=== PATIENT | female | born 1995 | race Caucasian/White ===

== ENCOUNTER 2018-05-20 08:59 | Emergency (ER) | payer BC, SELFPAY ==
[2018-05-20 09:02] VITALS: BP 112/82; PULSE 129; RESP 16; TEMP 37.3; O2SAT 98
--- NOTE | 2018-05-20 09:06 | W.ED.GENAD ---
Discharge Plan Disposition Patient Disposition: HOME Condition: Good Discharge Details Chief Complaint: Sorethroat Clinical Impression: URI (upper respiratory infection) Primary Care Provider: Sissy,Local ED Provider: Facundo Harris Home Meds and New Rx's Prescriptions: New loratadine 10 mg capsule 10 mg PO DAILY Qty: 14 RF: 0 No Action hydroxychloroquine [Plaquenil] 200 mg tablet 200 mg PO DAILY RF: 0 multivitamin,yn-yvth-otmqmigb [Complete Multivitamin] tablet 1 tab PO DAILY RF: 0 medroxyprogesterone [Depo-Provera] 150 mg/mL suspension 150 mg IM [id number] Qty: 1 RF: 2 Discharge Instructions Instructions: Upper Respiratory Infection (ED) Additional Instructions: Please take the medication as directed. Please drink 10-12 cups of water per day. Please take Tylenol and Motrin as needed for pain. You can take 1000 mg of Tylenol and 800 mg of ibuprofen every 6 hours. If you notice any worsening of your symptoms, or any new symptoms such as vomiting, diarrhea, fever, chills, shortness of breath, chest pain, numbness, weakness, or fainting , please return immediately to the emergency department for reevaluation. Please follow up with your primary care provider as soon as possible for reassessment and reevaluation. As always, it was a pleasure participating in your medical care today. Stand Alone Forms: Work Release Medical Decision Making This is a 23-year-old female with a past medical history of rheumatoid arthritis for which she takes Plaquenil, who presents today for mild sore throat, facial congestion, and feelings of malaise. No concerning red flags for meningitis, patient does demonstrate a mildly elevated heart rate, she is afebrile here. No signs of profound dehydration. No complaint of chest pain or shortness of breath. No clinical evidence of PE. Patient does demonstrate notable facial congestion, mild erythema in the posterior oropharynx. We will test for strep as well as influenza. Clinically the patient feels well though. 9:47 AM Patient has been drinking well here, she feels well and would like to go home. Strep and influenza have both returned negative. Feel the patient's symptoms are most likely from a viral upper respiratory infection, will recommend supportive therapy of fluids, Tylenol Motrin as needed for sore throat, and she has been given a work note. Because of her Plaquenil, I did discuss with her red flags which to return the importance of a low threshold for return as well as the importance of close follow-up. Vital signs have normalized and are reassuring. I have extensively reviewed the treatment plan and discharge instructions with the patient. I have addressed all patient concerns at this time. The patient was made aware of what symptoms to monitor for that would warrant a return to the emergency department. Discussed the plan with the patient, they demonstrate verbal understanding and agreement with our assessment and plan at this time. HPI General Date/Time Provider Initiated Documentation: 05/20/18 09:05. HPI Narrative: This is a 23-year-old female with past medical history of rheumatoid arthritis for which she takes Plaquenil, who presents today for evaluation of sore throat and frontal congestion. Symptoms have been present for the last 2 days. She denies any fever but does admit to generalized chills, aches, and feeling poorly. The patient denies any change in her medications. 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 She does admit to very mild headache, mild aches in her neck and joints. The patient denies any headache red flags of worst headache of life, thunderclap headache, severe neck pain, fever, concerning family history of polycystic kidney disease, Marfan syndrome, Umang-Danlos syndrome, abdominal aortic aneurysm, aortic dissection, or intracranial aneurysm. She denies any other modifying factors. She denies any other complaints at this time. She denies any recent surgical history, IV or illicit drug use, or pertinent family history. Related Data Home Medications Medication Instructions Recorded Confirmed hydroxychloroquine 200 mg tablet 200 mg PO DAILY tab 01/06/18 05/20/18 multivitamin,ey-lpkc-ydrlcspd 1 tab PO DAILY 01/06/18 05/20/18 tablet medroxyprogesterone 150 mg/mL 150 mg IM [id number] #1 ml 03/31/18 05/20/18 intramuscular suspension loratadine 10 mg PO DAILY #14 cap 05/20/18 Previous Rx's Medication Instructions Recorded medroxyprogesterone 150 mg/mL 150 mg IM [id number] #1 ml 03/31/18 intramuscular suspension loratadine 10 mg PO DAILY #14 cap 05/20/18 Allergies Allergy/AdvReac Type Severity Reaction Status Date / Time No Known Allergies Allergy Verified 05/20/18 09:14 General Stated Complaint: Sorethroat FELICITA: 4 Review of Systems Review of Systems All systems reviewed & are unremarkable except as noted in HPI and below PFSH Social History Smoking/Tobacco Use Status: Never Female Reproductive History Menstrual control method: progesterone injection (medroxyprogesterone 150 mg; [id number] EXP 04/2020; Given left gluteal) History History 0 Para Hx # Term Pregnancies Multiple births Hx # Pregnancies Ectopic pregnancies AB induced Hx Number of Living Children AB spontaneous Exam Narrative Exam Narrative: 1.Const: Well-nourished, Well-developed, appearing stated age 2.Eyes: PERRL, no conjunctival injection, and symmetrical lids. 3.ENT: Atraumatic external nose and ears. Moist MM. Neck: Symmetric, trachea midline, No thyromegaly. Patient demonstrates good movement of cervical neck. There is no nuchal rigidity, no nuchal tenderness. Patient is able to flex the neck without any difficulty or significant pain. Negative Kernig's and Brudzinski sign. Minimal erythema in the posterior oropharynx. No evidence of significant tonsillar exudates. Tympanic membranes are garcia and pearly, no signs of otitis media or externa. No significant anterior cervical lymphadenopathy. 4.CVS: +S1/S2, No murmurs or gallops. Peripheral pulses 2+ and equal in all extremities. Brisk capillary refill in all extremities. 5.RESP: Unlabored respiratory effort. Clear to auscultation bilaterally. No wheezes rales or rhonchi 6.GI: Soft, Nontender/Nondistended, No hepatosplenomegaly. No guarding or rebound. 7.MSK: Normocephalic/Atraumatic, Extremities w/o deformity or ttp No cyanosis or clubbing, Normal movement of all extremities 8.Skin: Warm, Dry. No rashes or lesions. 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 Sensation grossly intact, no focal neurologic deficits. 10.Psych: (AAO) x3. Appropriate mood and affect Course Vital Signs Temperature 37.3 C 05/20/18 09:02 Pulse 129 H 05/20/18 09:02 Respiratory Rate 16 05/20/18 09:02 Blood Pressure 112/82 05/20/18 09:02 Pulse Oximetry 98 05/20/18 09:02 Temperature 37.3 C 05/20/18 09:02 Pulse 129 H 05/20/18 09:02 Respiratory Rate 16 05/20/18 09:02 Blood Pressure 112/82 05/20/18 09:02 Blood Pressure Position Sitting 05/20/18 09:02 Pulse Oximetry 98 05/20/18 09:02 Oxygen Delivery Method Room Air 05/20/18 09:02 Oxygen Flow Rate 0 05/20/18 09:02 Pain Level 5 05/20/18 09:02 Lab/Test Results Lab/Test Results: 05/20/18 09:06 Nasopharynx Influenza Types A,B Antigen - Pending
--- NOTE | 2018-05-20 09:13 | ED.GENADUL_ITS ---
Discharge Plan Disposition Patient Disposition: HOME Condition: Good Discharge Details Chief Complaint: Sorethroat Clinical Impression: URI (upper respiratory infection) Primary Care Provider: Sissy,Local ED Provider: Facundo Harris Home Meds and New Rx's Prescriptions: New loratadine 10 mg capsule 10 mg PO DAILY Qty: 14 RF: 0 No Action hydroxychloroquine [Plaquenil] 200 mg tablet 200 mg PO DAILY RF: 0 multivitamin,lq-jnyc-jfyvyung [Complete Multivitamin] tablet 1 tab PO DAILY RF: 0 medroxyprogesterone [Depo-Provera] 150 mg/mL suspension 150 mg IM [id number] Qty: 1 RF: 2 Discharge Instructions Instructions: Upper Respiratory Infection (ED) Additional Instructions: Please take the medication as directed. Please drink 10-12 cups of water per day. Please take Tylenol and Motrin as needed for pain. You can take 1000 mg of Tylenol and 800 mg of ibuprofen every 6 hours. If you notice any worsening of your symptoms, or any new symptoms such as vomiting, diarrhea, fever, chills, shortness of breath, chest pain, numbness, weakness, or fainting , please return immediately to the emergency department for reevaluation. Please follow up with your primary care provider as soon as possible for reassessment and reevaluation. As always, it was a pleasure participating in your medical care today. Stand Alone Forms: Work Release Medical Decision Making This is a 23-year-old female with a past medical history of rheumatoid arthritis for which she takes Plaquenil, who presents today for mild sore throat, facial congestion, and feelings of malaise. No concerning red flags for meningitis, patient does demonstrate a mildly elevated heart rate, she is afebrile here. No signs of profound dehydration. No complaint of chest pain or shortness of breath. No clinical evidence of PE. Patient does demonstrate notable facial congestion, mild erythema in the posterior oropharynx. We will test for strep as well as influenza. Clinically the patient feels well though. 9:47 AM Patient has been drinking well here, she feels well and would like to go home. Strep and influenza have both returned negative. Feel the patient's symptoms are most likely from a viral upper respiratory infection, will recommend supportive therapy of fluids, Tylenol Motrin as needed for sore throat, and she has been given a work note. Because of her Plaquenil, I did discuss with her red flags which to return the importance of a low threshold for return as well as the importance of close follow-up. Vital signs have normalized and are reassuring. I have extensively reviewed the treatment plan and discharge instructions with the patient. I have addressed all patient concerns at this time. The patient was made aware of what symptoms to monitor for that would warrant a return to the emergency department. Discussed the plan with the patient, they demonstrate verbal understanding and agreement with our assessment and plan at this time. HPI General Date/Time Provider Initiated Documentation: 05/20/18 09:05 . HPI Narrative: This is a 23-year-old female with past medical history of rheumatoid arthritis for which she takes Plaquenil, who presents today for evaluation of sore throat and frontal congestion. Symptoms have been present for the last 2 days. She denies any fever but does admit to generalized chills, aches, and feeling poorly. The patient denies any change in her medications. 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 She does admit to very mild headache, mild aches in her neck and joints. The patient denies any headache red flags of worst headache of life, thunderclap headache, severe neck pain, fever, concerning family history of polycystic kidney disease, Marfan syndrome, Umang-Danlos syndrome, abdominal aortic aneurysm, aortic dissection, or intracranial aneurysm. She denies any other modifying factors. She denies any other complaints at this time. She denies any recent surgical history, IV or illicit drug use, or pertinent family history. Related Data Home Medications Medication Instructions Recorded Confirmed hydroxychloroquine 200 mg tablet 200 mg PO DAILY tab 01/06/18 05/20/18 multivitamin,ul-fdsl-bdyqyyai 1 tab PO DAILY 01/06/18 05/20/18 tablet medroxyprogesterone 150 mg/mL 150 mg IM [id number] #1 ml 03/31/18 05/20/18 intramuscular suspension loratadine 10 mg PO DAILY #14 cap 05/20/18 Previous Rx's Medication Instructions Recorded medroxyprogesterone 150 mg/mL 150 mg IM [id number] #1 ml 03/31/18 intramuscular suspension loratadine 10 mg PO DAILY #14 cap 05/20/18 Allergies Allergy/AdvReac Type Severity Reaction Status Date / Time No Known Allergies Allergy Verified 05/20/18 09:14 General Stated Complaint: Sorethroat FELICITA: 4 Review of Systems Review of Systems All systems reviewed & are unremarkable except as noted in HPI and below PFSH Social History Smoking/Tobacco Use Status: Never Female Reproductive History Menstrual control method: progesterone injection (medroxyprogesterone 150 mg; [id number] EXP 04/2020; Given left gluteal) History History 0 Para Hx # Term Pregnancies Multiple births Hx # Pregnancies Ectopic pregnancies AB induced Hx Number of Living Children AB spontaneous Exam Narrative Exam Narrative: 1.Const: Well-nourished, Well-developed, appearing stated age 2.Eyes: PERRL, no conjunctival injection, and symmetrical lids. 3.ENT: Atraumatic external nose and ears. Moist MM. Neck: Symmetric, trachea mi dline, No thyromegaly. Patient demonstrates good movement of cervical neck. There is no nuchal rigidity, no nuchal tenderness. Patient is able to flex the neck without any difficulty or significant pain. Negative Kernig's and Brudzinski sign. Minimal erythema in the posterior oropharynx. No evidence of significant tonsillar exudates. Tympanic membranes are garcia and pearly, no signs of otitis media or externa. No significant anterior cervical lymphadenopathy. 4.CVS: +S1/S2, No murmurs or gallops. Peripheral pulses 2+ and equal in all extremities. Brisk capillary refill in all extremities. 5.RESP: Unlabored respiratory effort. Clear to auscultation bilaterally. No wheezes rales or rhonchi 6.GI: Soft, Nontender/Nondistended, No hepatosplenomegaly. No guarding or rebound. 7.MSK: Normocephalic/Atraumatic, Extremities w/o deformity or ttp No cyanosis or clubbing, Normal movement of all extremities 8.Skin: Warm, Dry. No rashes or lesions. 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 Sensation grossly intact, no focal neurologic deficits. 10.Psych: (AAO) x3. Appropriate mood and affect Course Vital Signs Temperature 37.3 C 05/20/18 09:02 Pulse 129 H 05/20/18 09:02 Respiratory Rate 16 05/20/18 09:02 Blood Pressure 112/82 05/20/18 09:02 Pulse Oximetry 98 02/07/19 09:02 Temperature 37.3 C 05/20/18 09:02 Pulse 129 H 05/20/18 09:02 Respiratory Rate 16 05/20/18 09:02 Blood Pressure 112/82 05/20/18 09:02 Blood Pressure Position Sitting 05/20/18 09:02 Pulse Oximetry 98 05/20/18 09:02 Oxygen Delivery Method Room Air 05/20/18 09:02 Oxygen Flow Rate 0 05/20/18 09:02 Pain Level 5 05/20/18 09:02 Lab/Test Results Lab/Test Results: 05/20/18 09:06 Nasopharynx Influenza Types A,B Antigen - Pending
[2018-05-20 09:55] VITALS: PULSE 98; O2SAT 99
== END 2018-05-20 09:49 | disposition home or self-care (01) ==
PROVIDERS: Emergency Provider Student in an Organized Health Care Education/Training Program
DX: J06.9 Acute upper respiratory infection, unspecified (principal)
CPT/HCPCS: 87449; 87880; 99282; 87081

== ENCOUNTER 2018-05-23 08:45 | Emergency (ER) | payer BC, SELFPAY ==
[2018-05-23 08:53] VITALS: BP 130/71; PULSE 92; RESP 20; TEMP 37.2; O2SAT 96
--- NOTE | 2018-05-23 09:00 | W.ED.GENAD ---
Discharge Plan Disposition Patient Disposition: HOME Condition: Improving Discharge Details Chief Complaint: RespSymp Clinical Impression: Conjunctivitis of right eye [facility]ath[facility] Home Meds and New Rx's Prescriptions: Continued hydroxychloroquine [Plaquenil] 200 mg tablet 200 mg PO DAILY RF: 0 multivitamin,xw-qjin-epsdxwka [Complete Multivitamin] tablet 1 tab PO DAILY RF: 0 medroxyprogesterone [Depo-Provera] 150 mg/mL suspension 150 mg IM [id number] Qty: 1 RF: 2 loratadine 10 mg capsule 10 mg PO DAILY Qty: 14 RF: 0 Discharge Instructions Instructions: Conjunctivitis (ED) Additional Instructions: Apply erythromycin ointment to right eye 4 times daily for 7 days time. Return if you develop pain, worsening discharge from the eye, or any other acute concern. Our care management team will work to get you a regular doctor in the [facility] Medical Decision Making 23-year-old female who is been recovering from a mild URI and awoke this morning with the right eye conjunctivitis. Cannot differentiate viral versus bacterial. Does not appear to somewhat keratitis. Will treat with E-Mycin ophthalmic ointment. She needs to establish primary care in this area and we will place her on our care management list to do so. HPI General Mode of arrival: ambulatory. Date/Time Provider Initiated Documentation: 05/23/18 08:55. Limitations to Documentation: no limitations. Information obtained by: patient. History of Present Illness 23 year old F presents to the emergency department with the chief complaint of Right eye erythema and crusting of the eyelids this, described as moderate, Quality is described as dull and constant, and is localized to the eyes and right. Patient reports no radiation. Patient started experiencing this hour(s) and it has been constant. No relieving factors improve symptom(s), No exacerbating factors reported . Patient did receive the following treatments prior to arrival, none Related Data Home Medications Medication Instructions Recorded Confirmed hydroxychloroquine 200 mg tablet 200 mg PO DAILY tab 01/06/18 05/23/18 multivitamin,ng-qrdj-qhszseoi 1 tab PO DAILY 01/06/18 05/23/18 tablet medroxyprogesterone 150 mg/mL 150 mg IM [id number] #1 ml 03/31/18 05/23/18 intramuscular suspension loratadine 10 mg PO DAILY #14 cap 05/20/18 05/23/18 Previous Rx's Medication Instructions Recorded medroxyprogesterone 150 mg/mL 150 mg IM [id number] #1 ml 03/31/18 intramuscular suspension loratadine 10 mg PO DAILY #14 cap 05/20/18 Allergies Allergy/AdvReac Type Severity Reaction Status Date / Time No Known Allergies Allergy Verified 05/23/18 08:55 General Stated Complaint: RespSymp FELICITA: 3 Review of Systems Review of Systems 6 systems reviewed and otherwise - PFSH Social History Smoking and Tabacco status: Never Female Reproductive History Menstrual control method: progesterone injection (medroxyprogesterone 150 mg; [id number] EXP 04/2020; Given left gluteal) History History 0 Para Hx # Term Pregnancies Multiple births Hx # Pregnancies Ectopic pregnancies AB induced Hx Number of Living Children AB spontaneous Exam Narrative Exam Narrative: GEN: awake, alert, oriented 3. Pleasant, well groomed, interactive. HEAD: Normocephalic, atraumatic ENT: Mucous membranes moist, oropharynx mildly erythematous without exudate or swelling, External ear exam unremarkable EYES: PERRL, EOMI. right conjunctival injection with crusting of the eyelid NECK: Full ROM, no BHARAT, no menigismus CHEST/RESP: Nontender, clear to auscultation bilateral, no wheeze/rhonchi/rales CARDIOVASCULAR: RRR, no murmur, rub oleksandr. 2+ Rad pulse bilateral Neuro: Grossly normal neurologic exam, conversant, interactive. Psych: Speech fluent, thoughts congruent, affect normal M Course Vital Signs Temperature 37.2 C 05/23/18 08:53 Pulse 92 H 05/23/18 08:53 Respiratory Rate 20 05/23/18 08:53 Blood Pressure 130/71 05/23/18 08:53 Pulse Oximetry 96 05/23/18 08:53 Temperature 37.2 C 05/23/18 08:53 Temperature Source Temporal Artery Scan 05/23/18 08:53 Pulse 92 H 05/23/18 08:53 Respiratory Rate 20 05/23/18 08:53 Respiratory Effort Non-Labored 05/23/18 08:53 Blood Pressure 130/71 05/23/18 08:53 Blood Pressure Position Sitting 05/23/18 08:53 Pulse Oximetry 96 05/23/18 08:53 Oxygen Delivery Method Room Air 05/23/18 08:53 Oxygen Flow Rate 0 05/23/18 08:53 Pain Level 3 05/23/18 08:53
--- NOTE | 2018-05-23 09:03 | ED.GENADUL_ITS ---
Discharge Plan Disposition Patient Disposition: HOME Condition: Improving Discharge Details Chief Complaint: RespSymp Clinical Impression: Conjunctivitis of right eye [facility] Home Meds and New Rx's Prescriptions: Continued hydroxychloroquine [Plaquenil] 200 mg tablet 200 mg PO DAILY RF: 0 multivitamin,uh-khsq-bdrxmpty [Complete Multivitamin] tablet 1 tab PO DAILY RF: 0 medroxyprogesterone [Depo-Provera] 150 mg/mL suspension 150 mg IM [id number] Qty: 1 RF: 2 loratadine 10 mg capsule 10 mg PO DAILY Qty: 14 RF: 0 Discharge Instructions Instructions: Conjunctivitis (ED) Additional Instructions: Apply erythromycin ointment to right eye 4 times daily for 7 days time. Return if you develop pain, worsening discharge from the eye, or any other acute concern. Our care management team will work to get you a regular doctor in the [facility] Medical Decision Making 23-year-old female who is been recovering from a mild URI and awoke this morning with the right eye conjunctivitis. Cannot differentiate viral versus bacterial. Does not appear to somewhat keratitis. Will treat with E-Mycin ophthalmic ointment. She needs to establish primary care in this area and we will place her on our care management list to do so. HPI General Mode of arrival: ambulatory . Date/Time Provider Initiated Documentation: 05/23/18 08:55 . Limitations to Documentation: no limitations . Information obtained by: patient . History of Present Illness 23 year old F presents to the emergency department with the chief complaint of Right eye erythema and crusting of the eyelids this, described as moderate, Quality is described as dull and constant, and is localized to the eyes and right. Patient reports no radiation. Patient started experiencing this hour(s) and it has been constant. No relieving factors improve symptom(s), No exacerbating factors reported . Patient did receive the following treatments prior to arrival, none Related Data Home Medications Medication Instructions Recorded Confirmed hydroxychloroquine 200 mg tablet 200 mg PO DAILY tab 01/06/18 05/23/18 multivitamin,rd-cvqi-aczuxcug 1 tab PO DAILY 01/06/18 05/23/18 tablet medroxyprogesterone 150 mg/mL 150 mg IM [id number] #1 ml 03/31/18 05/23/18 intramuscular suspension loratadine 10 mg PO DAILY #14 cap 05/20/18 05/23/18 Previous Rx's Medication Instructions Recorded medroxyprogesterone 150 mg/mL 150 mg IM [id number] #1 ml 03/31/18 intramuscular suspension loratadine 10 mg PO DAILY #14 cap 05/20/18 Allergies Allergy/AdvReac Type Severity Reaction Status Date / Time No Known Allergies Allergy Verified 05/23/18 08:55 General Stated Complaint: RespSymp FELICITA: 3 Review of Systems Review of Systems 6 systems reviewed and otherwise - PFSH Social History Smoking and Tabacco status: Never Female Reproductive History Menstrual control method: progesterone injection (medroxyprogesterone 150 mg; [id number] EXP 04/2020; Given left gluteal) History History 0 Para Hx # Term Pregnancies Multiple births Hx # Pregnancies Ectopic pregnancies AB induced Hx Number of Living Children AB spontaneous Exam Narrative Exam Narrative: GEN: awake, alert, oriented 3. Pleasant, well groomed, interactive. HEAD: Normocephalic, atraumatic ENT: Mucous membranes moist, oropharynx mildly erythematous without exudate or swelling, External ear exam unremarkable EYES: PERRL, EOMI. right conjunctival injection with crusting of the eyelid NECK: Full ROM, no BHARAT, no menigismus CHEST/RESP: Nontender, clear to auscultation bilateral, no wheeze/rhonchi/rales CARDIOVASCULAR: RRR, no murmur, rub oleksandr. 2+ Rad pulse bilateral Neuro: Grossly normal neurologic exam, conversant, interactive. Psych: Speech fluent, thoughts congruent, affect normal M Course Vital Signs Temperature 37.2 C 05/23/18 08:53 Pulse 92 H 05/23/18 08:53 Respiratory Rate 20 05/23/18 08:53 Blood Pressure 130/71 05/23/18 08:53 Pulse Oximetry 96 05/23/18 08:53 Temperature 37.2 C 05/23/18 08:53 Temperature Source Temporal Artery Scan 05/23/18 08:53 Pulse 92 H 05/23/18 08:53 Respiratory Rate 20 05/23/18 08:53 Respiratory Effort Non-Labored 05/23/18 08:53 Blood Pressure 130/71 05/23/18 08:53 Blood Pressure Position Sitting 05/23/18 08:53 Pulse Oximetry 96 05/23/18 08:53 Oxygen Delivery Method Room Air 05/23/18 08:53 Oxygen Flow Rate 0 05/23/18 08:53 Pain Level 3 05/23/18 08:53
[2018-05-23 09:09] VITALS: BP 130/71; PULSE 92; RESP 20; TEMP 37.2; O2SAT 96
[2018-05-23] MEDS: Erythromycin Ophth Oint 3.5 GM TUBE (09:09)
--- NOTE | 2018-05-24 09:48 | PDOC.ERCMPRO ---
Care Management Progress Note 05/24-Dr. Hathaway requested assistance with a PCP (does not have one, Dr. Hamilton erp implementation consultant). Patient needs to establish care, does not need an ED f/u. Referral faxed to [facility] this am.
--- NOTE | 2018-05-24 09:50 | CMPROGNOTE_ITS ---
Care Management Progress Note 05/24-Dr. Hathaway requested assistance with a PCP (does not have one, Dr. aHmilton director transportation). Patient needs to establish care, does not need an ED f/u. Referral faxed to [facility] this am.
== END 2018-05-23 09:09 | disposition home or self-care (01) ==
PROVIDERS: Emergency Provider Emergency Medicine
DX: H10.31 Unspecified acute conjunctivitis, right eye (principal); J06.9 Acute upper respiratory infection, unspecified
CPT/HCPCS: 99283

== ENCOUNTER 2023-11-30 21:00 | Outpatient (REF) | payer BC, SELFPAY | END 2023-11-30 21:01 | disposition home or self-care (01) | LOC: LBN 21:00 | PROVIDERS: Referring Provider Nurse Practitioner Family; Visit Provider Nurse Practitioner Family | DX: J02.9 Acute pharyngitis, unspecified (principal); R68.89 Other general symptoms and signs; J06.9 Acute upper respiratory infection, unspecified | CPT/HCPCS: 87070 ==